=== PATIENT | male | born 2000 | race Caucasian/White ===

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

== ENCOUNTER → 2018-12-05 | Outpatient (CLI) | payer OTHER, BC | LOC: RAD 09:53 | DX: G93.89 Other specified disorders of brain (principal); H54.40 Blindness, one eye, unspecified eye; V89.2XXA Person injured in unspecified motor-vehicle accident, traffic, initial encounter | CPT/HCPCS: Q9967 ==

== ENCOUNTER 2020-07-21 14:45 | Outpatient (RCR) | payer BC | END 2020-07-26 | disposition home or self-care (01) | LOC: OT | DX: C71.7 Malignant neoplasm of brain stem (principal) ==